=== PATIENT | female | born 1960 | race Hispanic/Latino ===

== ENCOUNTER → 2017-09-19 | Day surgery (SDC) | payer BC ==
[~2017-09-19] MED LIST: ATORVASTATIN CA20 MG PO; CARAFATE1 GM/10 ML PO; CLONAZEPAM0.5 MG PO; FENTANYL CITRATE/PF 100MCG/2 ML INJ ONE; HYDROCHLOROTHIA25 MG PO; MIDAZOLAM HCL 2 MG/2 ML VIAL ONE; ONDANSETRON HCL4 MG PO; ONDANSETRON2 MG/1 ML PO; PRILOSEC OTC20 MG PO; PROPOFOL IV EMULSION 10 MG/ML 50 ML VIAL ONE; ULTRAM 50MG50 MG PO
--- NOTE | 2017-09-19 08:56 | Operative Report ---
DATE OF PROCEDURE: September 19, 2017 REFERRING PHYSICIAN: Dr. Griffith PROCEDURE PERFORMED: Esophagogastroduodenoscopy with esophageal dilatation. INDICATIONS FOR EGD: Dysphagia, upper abdominal pain, coffee-ground emesis. MEDICATION: Patient was done under MAC. Please see anesthesiologist's note. PROCEDURE: With the patient in the left lateral decubitus position, the flexible fiberoptic Olympus gastroscope was introduced into the esophagus under direct visualization without any difficulty. There was some patchy erythema noted in the distal esophagus. A minute tongue of velvety red mucosa was noted to extend proximally from the GE junction, and that was biopsied to rule out Curry's. A mild stricture was noted at the GE junction. That was dilated to size 52-Bulgarian Boswell. The scope was then advanced with ease into the stomach. Mucosa overlying the antrum and the body revealed some diffuse erythema and moderate edema, and biopsies were obtained and sent to stain for H. pylori. The pylorus was of normal contour and shape. It was intubated with ease, and the scope was advanced all the way to the 2nd portion of the duodenum. The scope was then withdrawn slowly, and biopsies were obtained from the proximal 2nd portion to rule out sprue considering the patient's history of diarrhea. Mucosa overlying the duodenal bulb appeared to be within normal limits. The scope was then withdrawn back into the stomach and retroflexed. Mucosa overlying the fundus and the cardia appeared to be within normal limits. The scope was then straightened out. The stomach was decompressed. Scope was subsequently withdrawn. Patient tolerated the procedure well. IMPRESSION 1. Distal esophagitis. 2. Rule out Curry's esophagus. 3. Esophageal stricture at gastroesophageal junction dilated to size 52-Bulgarian Boswell. 4. Gastritis, biopsied. Biopsies sent to stain for H. pylori. 5. Rule out sprue. PLAN: Follow up histology. Initiate Protonix 40 mg 1 p.o. q.a.m. a.c. Job#: [id number] cc:CLAUDETTE GRIFFITH M.D.
== END | disposition home or self-care (01) ==
LOC: OR 06:05
PROVIDERS: ATTEND Internal Medicine Gastroenterology
DX: K29.70 Gastritis, unspecified, without bleeding (principal); K22.2 Esophageal obstruction; K20.9 Esophagitis, unspecified; K21.9 Gastro-esophageal reflux disease without esophagitis; R19.7 Diarrhea, unspecified; I10 Essential (primary) hypertension; F41.9 Anxiety disorder, unspecified; Z01.810 Encounter for preprocedural cardiovascular examination; Z68.25 Body mass index [BMI] 25.0-25.9, adult
CPT/HCPCS: 43239; 43450; 93005; J2250

== ENCOUNTER → 2018-06-21 | Day surgery (SDC) | payer BC ==
[~2018-06-21] MED LIST changes: +PANTOPRAZOLE 40 MG 10ML VIAL ONE; -PROPOFOL IV EMULSION 10 MG/ML 50 ML VIAL ONE
--- OUTSIDE RECORDS SUMMARY | 2018-06-21 13:24 | XMS REPORT ---
Author Author [facility] Address Unknown Phone Unavailable Care Team Providers Care Embossing Toolsetter Name Role Phone Unavailable Unavailable Problems This patient has no known problems. Allergies, Adverse Reactions, Alerts This patient has no known allergies or adverse reactions. Medications This patient has no known medications. Encounters Start Date/Time End Date/Time Encounter Type Admission Type Attending Clinicians Care Facility Care Department Encounter ID 2018-06-07 09:48:20 2018-06-07 09:48:20 Emergency [facility] [id number]
--- OUTSIDE RECORDS SUMMARY | 2018-06-21 13:24 | XMS REPORT | Clinical Summary ---
Author Author [facility] Organization [facility] Address Unknown Phone Unavailable Care Team Providers Care Electronic Maintenance Supervisor Name Role Phone PCP Unavailable Allergies Active Allergy Reactions Severity Noted Date Comments No Known Allergies 11/22/2012 Current Medications Prescription Sig. Disp. Refills Start End Date Status Date Meclizine 25 mg cap Take by mouth. Active RANITIDINE HCL 300 mg Take 150 mg by mouth at Active tablet bedtime. gabapentin (NEURONTIN) Take 1 capsule by mouth 3 90 capsule 6 07/16/20 Active 300 mg times daily. 12 capsuleIndications: Numbness and tingling of left arm and leg hydrochlorothiazide Take 0.5 tablets by mouth 45 tablet 3 10/16/19 Active (HYDRODIURIL) 25 mg daily. 13 tabletIndications: Numbness and tingling of left arm and leg pravastatin (PRAVACHOL) Take 1 tablet by mouth at 90 tablet 3 10/16/19 Active 40 mg tabletIndications: bedtime. 13 Lipid disorder traZODone (DESYREL) 50 mg Take 1 tablet by mouth at 30 tablet 1 10/16/19 Active tabletIndications: bedtime. 13 Insomnia, unspecified cyanocobalamin (VITAMIN Inject 1 mL by 1 mL 12 10/22/19 Active B-12) 1,000 mcg/mL intramuscular injection 13 injectionIndications: B12 every month (vitamin B12 deficiency deficiency). Syringe, Disposable, 1 mL by [facility] [place] [facility].(Non-Drug; Combo 1 Syringe 12 10/22/19 Active SyrgIndications: B12 Route) route. 13 deficiency ALCOHOL SWABS (ALCOHOL Apply to affected area. 1 Box 0 10/22/19 Active PREP PADS) 13 PadMIndications: B12 deficiency oxybutynin (DITROPAN) 5 Take 1 tablet by mouth 3 30 tablet 0 07/07/20 Active mg tabletIndications: times daily. 13 Urgency incontinence oxybutynin (DITROPAN XL) Take 1 tablet by mouth 90 tablet 4 10/29/19 Active 5 mg extended release daily. 14 tabletIndications: Urinary urgency Active Problems Not on file Encounters Date Type Specialty Care Team Description 06/07/2018 Emergency Emergency Medicine Delicia Osborn, Physician after 06/20/2017 Immunizations Name Dates Previously Given Next Due Influenza Vaccine 05/28/2012 Family History Medical History Relation Name Comments Other Mother Alzheimer's Cancer Son testicular cancer - at 19 Relation Name Status Comments Father Mother Alive Son (Age 19) Son Social History Tobacco Use Types Packs/Day Years Used Date Never Smoker Smokeless Tobacco: Never Used Alcohol Use Drinks/Week oz/Week Comments No Sex Assigned at Date Recorded Not on file Last Filed Vital Signs Vital Sign Reading Time Taken Blood Pressure 143/93 06/07/2018 9:23 AM CDT Pulse 85 06/07/2018 9:23 AM CDT Temperature 36.7 C (98.1 F) 06/07/2018 9:23 AM CDT Respiratory Rate 18 06/07/2018 9:23 AM CDT Oxygen Saturation 99% 06/07/2018 9:23 AM CDT Inhaled Oxygen - - Concentration Weight - - Height - - Body Mass Index - - Plan of Treatment Health Maintenance Due Date Last Done Comments Colorectal Cancer Scrn 02/13/2012 Annual (FIT/FOBT) Age 50 to 75 Breast Cancer Scrn 01/13/2013 01/14/2012 (Previously completed - (Yearly) External) Cervical Cancer Scrn (3 01/13/2015 01/14/2012 (Previously completed - Yrs) External) Results Not on fileafter 06/20/2017
[2018-06-21 18:30] VITALS: BP 122/79
--- NOTE | 2018-06-21 18:35 | Operative Report ---
DATE OF PROCEDURE: June 21, 2018 REFERRING PHYSICIAN: CLAUDETTE GRIFFITH MD PROCEDURE PERFORMED: Esophagogastroduodenoscopy with esophageal dilatation INDICATIONS FOR PROCEDURE: Dysphagia. MEDICATION: Patient was done under MAC. Please see anesthesiologist's note. PROCEDURE: With the patient in the lateral decubitus position, the flexible fiberoptic Olympus gastroscope was introduced into the esophagus under direct visualization without any difficulty. There was some patchy erythema noted in distal esophagus. A minute tongue of velvety red mucosa was noted to extend proximally from the GE junction and that was biopsied to rule out Curry's. There was a mild stricture noted at the GE junction and that was dilated to size 52-American Boswlel. The scope was then advanced with ease into the stomach. The mucosa overlying the antrum and the body revealed some patchy erythema and mild to moderate edema and biopsies were obtained and sent to stain for H. pylori. Pylorus appeared to be of normal contour and shape. It was intubated with ease and the scope was advanced all the way to the 2nd portion of the duodenum. The scope was then withdrawn slowly. Mucosa overlying the proximal 2nd portion and the duodenal bulb appeared to be within normal limits. The scope was then withdrawn back into the stomach and retroflexed and mucosa overlying the fundus and the cardia appeared to be within normal limits. The scope was then straightened out. It was subsequently withdrawn. Patient tolerated the procedure well. IMPRESSION: 1. Distal esophagitis, mild. 2. Minute tongue of (?) Curry's epithelium at the GE junction, biopsied. 3. Esophageal stricture, mild, at GE junction dilated to a to size 52-American Boswell. 4. Gastritis biopsied. Biopsy sent stain for H. pylori. PLAN: Follow up histology. Increase Protonix to 40 mg. one p.o. a.c. b.i.d. Job#: [id number] cc:CLAUDETTE GRIFFITH M.D.
== END | disposition home or self-care (01) ==
LOC: OR 13:21
PROVIDERS: ATTEND Internal Medicine Gastroenterology
DX: K21.9 Gastro-esophageal reflux disease without esophagitis (principal); K29.70 Gastritis, unspecified, without bleeding; K22.2 Esophageal obstruction; K20.9 Esophagitis, unspecified; K22.8 Other specified diseases of esophagus; I10 Essential (primary) hypertension; E78.00 Pure hypercholesterolemia, unspecified; F41.9 Anxiety disorder, unspecified; Z01.810 Encounter for preprocedural cardiovascular examination
CPT/HCPCS: 43239; 43450; 93005; J2250